=== PATIENT | female | born 1995 | race Caucasian/White ===

== ENCOUNTER 2017-01-11 09:59 | Emergency (ER) | payer MEDICAID ==
[~2017-01-11] VITALS: Ht 172.7 cm; Wt 102.2 kg
[2017-01-11 10:02] VITALS: BP 107/69
== END 2017-01-11 11:27 | disposition home or self-care (01) ==
LOC: ED 11:19
DX: J02.9 Acute pharyngitis, unspecified (principal)
CPT/HCPCS: 87081; 87147; 87880; 99284

== ENCOUNTER 2018-07-08 14:26 | Emergency (ER) | payer MEDICAID ==
[~2018-07-08] VITALS: Ht 172.7 cm; Wt 117.0 kg
[~2018-07-08 14:26] MED LIST: OMEP20TA62 PO
[2018-07-08] MEDS ORDERED: IBUPROFEN 600 MG TABLET PO ONE (15:00)
[2018-07-08] MEDS ORDERED: ACETAMINOPHEN 500 MG TABLET PO ONE (15:00)
--- NOTE | 2018-07-08 15:05 | NUR ---
PT TO ROOM FROM LOBBY AT THIS TIME.
[2018-07-08 15:10] LABS: RAPID INFLUENZA A Negative (Negative); RAPID INFLUENZA B Negative (Negative)
[2018-07-08] MEDS ORDERED: IBUPROFEN 600 MG TABLET ONE (15:14)
[2018-07-08] MEDS ORDERED: ACETAMINOPHEN 500 MG TABLET ONE (15:14)
[2018-07-08 15:21] VITALS: BP 124/73
--- NOTE | 2018-07-08 15:24 | NUR ---
PT AMBULATORY TO BATHROOM WITH STEADY GAIT FOR URINE SAMPLE.
[2018-07-08 15:43] LABS: BASOPHILS # (AUTO) 0.05 x10^3/uL (0-0.1); BASOPHILS % (AUTO) 0 % (0-1); EOSINOPHILS # (AUTO) 0.01 x10^3/uL (0-0.4); EOSINOPHILS % (AUTO) 0 % (1-7); LYMPHOCYTES # (AUTO) 1.51 x10^3/uL (1-3.4); LYMPHOCYTES % (AUTO) 10 % (22-44); MD NO; MEAN CORPUSCULAR HEMOGLOBIN 29.5 pg (27.0-34.8); MEAN CORPUSCULAR HGB CONC 34.3 g/dL (32.4-35.8); MEAN CORPUSCULAR VOLUME 86.1 fL (80-100); MONOCYTES # (AUTO) 0.57 x10^3/uL (0.2-0.8); MONOCYTES % (AUTO) 4 % (2-9); NEUTROPHILS # (AUTO) 13.28 x10^3/uL (1.8-6.8); NEUTROPHILS % (AUTO) 86 % (42-75); PLATELET COUNT 331 x10^3/uL (130-400); RED BLOOD COUNT 5.03 x10^6/uL (3.82-5.3); RED CELL DISTRIBUTION WIDTH 13.5 % (9.6-15.2)
[2018-07-08 15:56] LABS: ALBUMIN 3.7 g/dL (3.4-5.0); ANION GAP 8 mmol/L (5-15); CALCIUM 9.2 mg/dL (8.5-10.1); CHLORIDE 108 mmol/L (98-107)
[2018-07-08 16:08] LABS: MICROSCOPIC NOT IND
[2018-07-08 16:11] LABS: CULTURE INDICATED? NO
--- NOTE | 2018-07-08 18:20 | NUR ---
Patient/Caregiver given discharge instructions and they have confirmed that they understand the instructions. Patient ambulatory with steady gait. PT LEFT WITH ALL PERSONAL BELONGINGS.
== END 2018-07-08 18:22 | disposition home or self-care (01) ==
LOC: ED 16:14
DX: B34.9 Viral infection, unspecified (principal)
CPT/HCPCS: 36415; 71046; 80048; 81003; 82040; 83605; 84145; 85025; 87040; 87081; 87400; 87880; 99284

== ENCOUNTER 2019-11-22 02:03 | Emergency (ER) | payer MEDICAID ==
--- NOTE | 2019-11-22 02:11 | NUR ---
EKG DONE IN TRIAGE
[2019-11-22 02:45] LABS: BASOPHILS # (AUTO) 0.06 x10^3/uL (0-0.1); BASOPHILS % (AUTO) 1 % (0-1); EOSINOPHILS # (AUTO) 0.14 x10^3/uL (0-0.4); EOSINOPHILS % (AUTO) 2 % (1-7); LYMPHOCYTES # (AUTO) 2.71 x10^3/uL (1-3.4); LYMPHOCYTES % (AUTO) 31 % (22-44); MD NO; MEAN CORPUSCULAR HEMOGLOBIN 29.8 pg (27.0-34.8); MEAN CORPUSCULAR HGB CONC 33.9 g/dL (32.4-35.8); MEAN PLATELET VOLUME 8.1 fL (7.4-10.4); MONOCYTES % (AUTO) 6 % (2-9); NEUTROPHILS # (AUTO) 5.31 x10^3/uL (1.8-6.8); NEUTROPHILS % (AUTO) 61 % (42-75); PLATELET COUNT 328 x10^3/uL (130-400); RED BLOOD COUNT 4.65 x10^6/uL (3.82-5.3); RED CELL DISTRIBUTION WIDTH 13.2 % (9.6-15.2)
[2019-11-22 02:54] LABS: ALANINE AMINOTRANSFERASE 41 U/L (12-78); ALBUMIN 3.3 g/dL (3.4-5.0); ANION GAP 7 mmol/L (5-15); CALCIUM 8.5 mg/dL (8.5-10.1); CHLORIDE 109 mmol/L (98-107); CREATININE 0.81 mg/dL (0.55-1.02)
[2019-11-22 02:59] LABS: ALKALINE PHOSPHATASE 108 U/L (45-117); BILIRUBIN,TOTAL 0.3 mg/dL (0.2-1.0); T4 (THYROXINE) 9.7 mcg/dL (4.8-13.9); TOTAL PROTEIN 7.5 g/dL (6.4-8.2)
[2019-11-22 03:30] VITALS: BP 127/84
== END 2019-11-22 03:32 | disposition home or self-care (01) ==
LOC: ED 02:43
DX: R55 Syncope and collapse (principal); R42 Dizziness and giddiness; R94.31 Abnormal electrocardiogram [ECG] [EKG]; Z90.49 Acquired absence of other specified parts of digestive tract
CPT/HCPCS: 36415; 80053; 84436; 84443; 84703; 85025; 93005; 99284

== ENCOUNTER 2019-12-05 16:24 | Emergency (ER) | payer MEDICAID ==
[~2019-12-05] VITALS: Ht 172.7 cm; Wt 118.0 kg
[2019-12-05 16:48] VITALS: BP 140/81
--- NOTE | 2019-12-05 17:27 | NUR ---
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
== END 2019-12-05 17:30 | disposition left against medical advice (07) ==
LOC: ED 17:24
DX: H92.01 Otalgia, right ear (principal); Z53.21 Procedure and treatment not carried out due to patient leaving prior to being seen by health care provider

== ENCOUNTER 2019-12-06 02:02 | Emergency (ER) | payer MEDICAID ==
[~2019-12-06] VITALS: Ht 172.7 cm; Wt 119.0 kg
[2019-12-06 02:05] VITALS: BP 97/76
--- NOTE | 2019-12-06 03:39 | NUR ---
Patient/Caregiver given discharge instructions and they have confirmed that they understand the instructions. Patient ambulatory with steady gait.
== END 2019-12-06 03:40 | disposition home or self-care (01) ==
LOC: ED 02:37
DX: H66.41 Suppurative otitis media, unspecified, right ear (principal); R05 Cough; R09.81 Nasal congestion
CPT/HCPCS: 99283

== ENCOUNTER 2020-01-02 04:15 | Emergency (ER) | payer MEDICAID ==
[~2020-01-02] VITALS: Ht 172.7 cm; Wt 119.2 kg
--- NOTE | 2020-01-02 04:40 | NUR ---
PT STATES, A COUPLE HOURS AGO, SHE STARTED FEELING NUMBNESS IN HER BILATERAL HANDS, STARTED FORGETTING EASY WORDS. PT APPEARS DROWSY, NO PRONATOR DRIFT, PUPILS EQUAL AND REACTIVE, PT HAS SOME SLURRED SPEECH, AND SPEAKING SOFTLY. PT DENIES DRUG USE TONIGHT. VITALS STABLE, PATIENT PLACED ON MONITORS. AWAITING ERP ASSESSMENT
[2020-01-02] MEDS ORDERED: SODIUM CHLORIDE 0.9% 1,000ML IVBOLUS ONE (05:30)
[2020-01-02] MEDS ORDERED: SODIUM CHLORIDE FLUSH 10ML SYR IVF ONE (05:30)
[2020-01-02] MEDS ORDERED: METOCLOPRAMIDE 5 MG/ML, 2ML IVPush ONE (05:30)
[2020-01-02] MEDS ORDERED: KETOROLAC 30 MG/1 ML IVPush ONE (05:30)
[2020-01-02] MEDS ORDERED: DIPHENHYDRAMINE 50 MG/ML, 1ML IVPush ONE (05:30)
--- NOTE | 2020-01-02 05:40 | NUR ---
IV ESTABLISHED; BLOOD DRAWN, IVF INFUSING PER KIEL. VS UPDATED AND STABLE. BLANKET PROVIDED TO PT. ALL LIGHTS DIMMED.
[2020-01-02] MEDS ORDERED: METOCLOPRAMIDE 5 MG/ML, 2ML ONE (05:59)
[2020-01-02] MEDS ORDERED: DIPHENHYDRAMINE 50 MG/ML, 1ML ONE (05:59)
[2020-01-02] MEDS ORDERED: KETOROLAC 30 MG/1 ML ONE (05:59)
--- NOTE | 2020-01-02 06:10 | NUR ---
PATIENT MEDICATED PER EMAR, NO S/S OF DISTRESS. PATIENT DOZING INTERMITTENTLY
[2020-01-02 06:57] LABS: CHLORIDE 109 mmol/L (98-107)
--- NOTE | 2020-01-02 06:59 | NUR ---
REPORT FROM ANDREW
[2020-01-02 07:03] LABS: ALANINE AMINOTRANSFERASE 33 U/L (12-78); ALBUMIN 3.3 g/dL (3.4-5.0); ANION GAP 8 mmol/L (5-15); CALCIUM 8.9 mg/dL (8.5-10.1); CREATININE 0.75 mg/dL (0.55-1.02)
[2020-01-02 07:15] LABS: BASOPHILS # (AUTO) 0.03 x10^3/uL (0-0.1); BASOPHILS % (AUTO) 0 % (0-1); EOSINOPHILS # (AUTO) 0.09 x10^3/uL (0-0.4); EOSINOPHILS % (AUTO) 1 % (1-7); LYMPHOCYTES # (AUTO) 3.16 x10^3/uL (1-3.4); LYMPHOCYTES % (AUTO) 28 % (22-44); MD NO; MEAN CORPUSCULAR HEMOGLOBIN 29.3 pg (27.0-34.8); MEAN CORPUSCULAR VOLUME 88.9 fL (80-100); MEAN PLATELET VOLUME 8.2 fL (7.4-10.4); MONOCYTES % (AUTO) 5 % (2-9); NEUTROPHILS # (AUTO) 7.33 x10^3/uL (1.8-6.8); NEUTROPHILS % (AUTO) 66 % (42-75); PLATELET COUNT 328 x10^3/uL (130-400); RED BLOOD COUNT 4.53 x10^6/uL (3.82-5.3); RED CELL DISTRIBUTION WIDTH 13.3 % (9.6-15.2)
[2020-01-02 07:20] LABS: ALKALINE PHOSPHATASE 103 U/L (45-117); BILIRUBIN,TOTAL 0.2 mg/dL (0.2-1.0); TOTAL PROTEIN 7.3 g/dL (6.4-8.2)
--- NOTE | 2020-01-02 07:24 | NUR ---
DISCUSSED Danii CAMPBELL
[2020-01-02 07:36] VITALS: BP 123/71
== END 2020-01-02 07:38 | disposition home or self-care (01) ==
LOC: ED 06:24
DX: G43.909 Migraine, unspecified, not intractable, without status migrainosus (principal); R53.1 Weakness; R42 Dizziness and giddiness; R20.2 Paresthesia of skin
CPT/HCPCS: 36415; 80053; 84703; 85025; 96361; 96374; 96375; 99284; J1200; J1885; J2765; J7030